=== PATIENT | female | born 1965 | race Caucasian/White ===

== ENCOUNTER 2018-01-23 10:29 | Emergency (ER) | payer OTHER ==
[2018-01-23 10:44] VITALS: BMI 29.2
[2018-01-23] MEDS ORDERED: SODIUM CHLORIDE 1,000 ML IV STA (11:02)
[2018-01-23] MEDS ORDERED: ACETAMINOPHEN 500 MG TABLET (FP) PO ONE (11:02)
[2018-01-23] MEDS ORDERED: METOCLOPRAMIDE HCL INJECTION 10 MG/2 ML VIAL IVPUSH ONE (11:02)
[2018-01-23] MEDS ORDERED: ACETAMINOPHEN 325 MG TABLET (FP) ONE (11:08)
[2018-01-23] MEDS ORDERED: METOCLOPRAMIDE HCL INJECTION 10 MG/2 ML VIAL ONE (11:08)
--- NOTE | 2018-01-23 11:34 | PDOC ---
History of Present Illness - General Chief Complaint: Head/Neck problem Stated Complaint: FALL/ DIZZINESS Time Seen by Provider: 01/23/18 10:46 History Source: Patient Exam Limitations: No Limitations - History of Present Illness Initial Comments: 01/23/18 11:27 HPI: This 52 yr old female with c.o head pain and lightheadness after a fall that occurred just prior to comingin to ER. She drove in herself. she was in her kitchen and stated the floor was wet and she slipped and fell, hitting her back of her head on the floor under the kitchen table. She actually hit her head on the wooden leg of the table. She remembers the whole incident, no bleeding, no confusion, neg LOC, and denies neck pain. she states she is nausea , no vomiting, is lightheadedness with out other symptoms. Chief Compliant: head pain PMH: hypothyroidism FH: Pt has not recently traveled outside the country in the last 30 days. Pt has not been in contact with people who have traveled out of the country, in contact with people who have been ill with fever, n, v, d. 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: tracie Mckeon P : Past History - Travel Traveled outside of the country in the last 30 days: No Close contact w/someone who was outside of country & ill: No - Past Medical History Allergies/Adverse Reactions: Allergies Allergy/AdvReac Type Severity Reaction Status Date / Time No Known Allergies Allergy Verified 01/23/18 10:44 Home Medications: Ambulatory Orders Levothyroxine [Synthroid -] 100 mcg PO DAILY 01/23/18 COPD: No Thyroid Disease: Yes (HYPOTHYROIDISM) - Surgical History Gastric Stapling: No (GASTRIC SLEEVE) - Suicide/Smoking/Psychosocial Hx Smoking Status: No Smoking History: Never smoked Number of Cigarettes Smoked Daily: 0 Information on smoking cessation initiated: No Hx Alcohol Use: No Drug/Substance Use Hx: No Substance Use Type: None Trauma Specific PMHX - Complaint Specific PMHX Back Injury: No Neck Injury: No Review of Systems - Review of Systems Able to Perform ROS?: Yes Is the patient limited Amharic proficient: Yes Constitutional: No: Symptoms Reported, Other HEENTM: Yes: See HPI. No: Blurred Vision Respiratory: No: Symptoms reported Cardiac (ROS): No: Symptoms Reported ABD/GI: No: Symptoms Reported : No: Symptoms Reported Musculoskeletal: Yes: Other (occipital head pain). No: Back Pain, Joint Pain, Muscle Pain, Neck Pain Integumentary: Yes: See HPI, Other (occipital head scalp swelling). No: Bruising, Dryness, Erythema, Lesions Neurological: Yes: See HPI, Headache, Dizziness. No: Numbness, Paresthesia, Weakness, Unsteady Gait Psychiatric: Yes: Other (found to be crying after eval, children fighting prior to [employer] and she was upset) Endocrine: No: Symptoms Reported Hematologic/Lymphatic: No: Symptoms Reported *Physical Exam - Vital Signs Last Vital Signs Temp Pulse Resp BP Pulse Ox 97.9 F 83 18 143/94 99 01/23/18 10:42 01/23/18 10:42 01/23/18 10:42 01/23/18 10:42 01/23/18 10:42 - Physical Exam General Appearance: Yes: Appropriately Dressed HEENT: positive: Normal Voice, Symmetrical Neck: positive: Trachea midline Respiratory/Chest: positive: Lungs Clear Cardiovascular: positive: Regular Rate Gastrointestinal/Abdominal: positive: Normal Bowel Sounds, Flat Musculoskeletal: positive: Normal Inspection Extremity: positive: Normal Capillary Refill, Normal Inspection Integumentary: positive: Normal Color, Dry, Warm Neurologic: positive: Fully Oriented, Alert, Normal Response, Motor Strength 5/ 5. negative: Facial Droop ED Treatment Course - LABORATORY CBC & Chemistry Diagram: 01/23/18 11:15 01/23/18 11:25 - RADIOLOGY Radiology Studies Ordered: Category Date Time Status HEAD CT WITHOUT CONTRAST [CT] Stat CT Scan 01/23/18 11:02 Ordered - Medications Given in the ED: ED Medications Discontinued Medications Generic Name Dose Route Start Last Admin Trade Name Freq PRN Reason Stop Dose Admin Acetaminophen 975 mg 01/23/18 11:02 01/23/18 11:26 Tylenol - PO 01/23/18 11:03 975 mg ONCE ONE Administration Metoclopramide HCl 10 mg 01/23/18 11:02 01/23/18 11:26 Reglan Injection - IVPUSH 01/23/18 11:03 10 mg ONCE ONE Administration Medical Decision Making - Medical Decision Making 01/23/18 11:37 Pt seen and examined. Pt drove to ER and ambulated into ER bed with a steady gait. she is upset due to her teenage children fighting when this occurred and she denies any cause for concern of harm at home even when asked by RN Pt with small eccymotic, swollen area of scalp without open skin to the occipital midline. + pain to touch. Plan: -Head CT - -Tylenol po -reglan IV for nausea -IVF -labs -ua -reassess. 01/23/18 12:[address] normal, no acute pathology Pt refused IVF, received reglan and tylenol and found sleeping upon discharge. Denies headache or lightheadnesses, head pain Pt will be discharged at this time to go home and rest *DC/Admit/Observation/Transfer Diagnosis at time of Disposition: Trauma Head pain Qualifiers: Headache type: post-traumatic Headache chronicity pattern: acute headache Intractability: not intractable Qualified Code(s): G44.319 - Acute post- traumatic headache, not intractable - Discharge Dispostion Disposition: HOME Condition at time of disposition: Stable Admit: No - Referrals - Patient Instructions Printed Discharge Instructions: DI for Post-traumatic Headache Additional Instructions: Discharge instructions 1. Please follow up with your primary physician within the next few days and explain that you have been seen here in the Emergency Room have having a closed head injury from a traumatic fall at home . 2. If you experience any worsening of symptoms, changes of your mental status, increase pain, please return to the ER immediately 3. Rest today, take tylenol for pain, use ice to area. 4. Drink plenty of water - Post Discharge Activity Forms/Work/School Notes: Back to Work
[2018-01-23 11:38] LABS: BASO % 0.9 % (0-2.0); EOS % 2.8 % (0-4.5); HEMATOCRIT 43.4 % (32.4-45.2); HEMOGLOBIN 15.1 GM/dL (10.7-15.3); LYMPH % 31.9 % (8-40); MCH 32.7 pg (25.7-33.7); MCHC 34.9 g/dl (32.0-36.0); MEAN CELL VOLUME 93.8 fl (80-96); MONO % 9.9 % (3.8-10.2); NEUT % 54.5 % (42.8-82.8); PLATELET COUNT 258 K/MM3 (134-434); RBC 4.63 M/mm3 (3.60-5.2); RDW 13.3 % (11.6-15.6); WHITE BLOOD COUNT 8.3 K/mm3 (4.0-10.0)
[2018-01-23 11:40] LABS: URINE APPEARANCE CLEAR; URINE BILIRUBIN NEGATIVE (NEGATIVE); URINE BLOOD NEGATIVE (NEGATIVE); URINE COLOR YELLOW; URINE GLUCOSE (UA) NEGATIVE (NEGATIVE); URINE KETONE NEGATIVE (NEGATIVE); URINE LEUK ESTERASE TRACE (NEGATIVE); URINE NITRITE NEGATIVE (NEGATIVE); URINE PROTEIN NEGATIVE (NEGATIVE); URINE UROBILINOGEN NEGATIVE mg/dL (0.2-1.0)
[2018-01-23 12:07] LABS: EPI CELLS RARE /HPF (FEW); URINE MUCUS FEW
[2018-01-23 12:20] LABS: ALBUMIN 4.1 g/dl (3.4-5.0); ALK PHOS 87 U/L (45-117); ANION GAP 7 (8-16); BILIRUBIN,TOTAL 0.4 mg/dL (0.2-1.0); BLOOD UREA NITROGEN 14 mg/dL (7-18); CALCIUM 8.6 mg/dL (8.5-10.1); CHLORIDE 104 mmol/L (98-107); CO2 29 mmol/L (21-32); CREATININE 0.8 mg/dL (0.55-1.02); GLUCOSE,RANDOM 87 mg/dL (74-106); POTASSIUM 3.9 mmol/L (3.5-5.1); SGOT/AST 19 U/L (15-37); SGPT/ALT 24 U/L (12-78); SODIUM 140 mmol/L (136-145); TOT PROT 8.1 g/dl (6.4-8.2)
[2018-01-23 13:01] VITALS: BP 132/77; PULSE 72; TEMP 98.2
== END 2018-01-23 13:01 | disposition home or self-care (01) ==
LOC: JER 10:29
PROC: 3E033GC Introduction of Other Therapeutic Substance into Peripheral Vein, Percutaneous Approach (ICD-10-PCS; principal; 2018-01-23)
PROC: 3E0337Z Introduction of Electrolytic and Water Balance Substance into Peripheral Vein, Percutaneous Approach (ICD-10-PCS; 2018-01-23)
DX: G44.319 Acute post-traumatic headache, not intractable (principal); W18.39XA Other fall on same level, initial encounter; Y93.89 Activity, other specified; Y92.9 Unspecified place or not applicable; E03.9 Hypothyroidism, unspecified; Z98.84 Bariatric surgery status
CPT/HCPCS: 36415; 70450-TC; 80053; 81003; 81015; 85025; 99283-25

== ENCOUNTER 2018-02-18 08:08 | Emergency (ER) | payer OTHER ==
[2018-02-18 08:28] VITALS: TEMP 97.4; BMI 29.2
--- NOTE | 2018-02-18 08:31 | PDOC ---
History of Present Illness - General History Source: Patient Exam Limitations: No Limitations - History of Present Illness Initial Comments: 02/18/18 09:13 The patient is a 52 year old female with a significant PMH of hypothyroidism on synthroid and s/p gastric sleeve placement two years ago who presents to the emergency department with multiple episodes of vomit and abdominal pain that began yesterday. The patient states she was in [place] for 1 week, came back yesterday and has been experiencing multiple episodes of non-bloody, non- bilious clear vomit since. The patient endorses emesis after every PO intake. The patient describes the abdominal pain as localized in the LLQ, non radiating and denies any alleviating or exacerbating factors. Denies fever, chills, diarrhea and constipation. Denies dysuria, frequency, urgency and hematuria. The patient is not currently following with GI. Allergies: NKA Past surgical history: gastric sleeve placement Social history: No reported alcohol, drug or cigarette use. PCP: Dr. Gary Lan <Nicol Arenas - Last Filed: 02/18/18 09:13> <Court Guillen - Last Filed: 02/18/18 14:19> - General Chief Complaint: Vomiting/Diarrhea Stated Complaint: ABD PAIN, VOMITING Time Seen by Provider: 02/18/18 08:31 Past History <Nicol Arenas - Last Filed: 02/18/18 09:13> - Past Medical History COPD: No Thyroid Disease: Yes (HYPOTHYROIDISM) - Surgical History Gastric Stapling: No (GASTRIC SLEEVE) - Immunization History Immunization Up to Date: Yes - Suicide/Smoking/Psychosocial Hx Smoking Status: No Smoking History: Never smoked Number of Cigarettes Smoked Daily: 0 Hx Alcohol Use: No Drug/Substance Use Hx: No Substance Use Type: None <Court Guillen - Last Filed: 02/18/18 14:19> - Past Medical History Allergies/Adverse Reactions: Allergies Allergy/AdvReac Type Severity Reaction Status Date / Time No Known Allergies Allergy Verified 02/18/18 08:20 Home Medications: Ambulatory Orders Levothyroxine [Synthroid -] 100 mcg PO DAILY 01/23/18 Review of Systems - Review of Systems Able to Perform ROS?: Yes Comments:: 02/18/18 09:15 GENERAL/CONSTITUTIONAL: No fever or chills. No weakness. HEAD, EYES, EARS, NOSE AND THROAT: No change in vision. No ear pain or discharge. No sore throat. CARDIOVASCULAR: No chest pain or shortness of breath. RESPIRATORY: No cough, wheezing, or hemoptysis. GASTROINTESTINAL: (+) Vomiting. (+) LLQ pain. No nausea, diarrhea or constipation. GENITOURINARY: No dysuria, frequency, or change in urination. MUSCULOSKELETAL: No joint or muscle swelling or pain. No neck or back pain. SKIN: No rash NEUROLOGIC: No headache, vertigo, loss of consciousness, or change in strength/ sensation. ENDOCRINE: No increased thirst. No abnormal weight change. HEMATOLOGIC/LYMPHATIC: No anemia, easy bleeding, or history of blood clots. ALLERGIC/IMMUNOLOGIC: No hives or skin allergy. <Nicol Arenas - Last Filed: 02/18/18 09:13> *Physical Exam - Vital Signs Last Vital Signs Temp Pulse Resp BP Pulse Ox 97.4 F L 77 16 115/76 99 02/18/18 08:20 02/18/18 08:20 02/18/18 08:20 02/18/18 08:20 02/18/18 08:20 - Physical Exam Comments: 02/18/18 09:15 GENERAL: Awake, alert, and fully oriented, in no acute distress HEAD: No signs of trauma EYES: PERRLA, EOMI, sclera anicteric, conjunctiva clear ENT: Auricles normal inspection, hearing grossly normal, nares patent, oropharynx clear without exudates. Moist mucosa NECK: Normal ROM, supple, no lymphadenopathy, JVD, or masses LUNGS: Breath sounds equal, clear to auscultation bilaterally. No wheezes, and no crackles HEART: Regular rate and rhythm, normal S1 and S2, no murmurs, rubs or gallops ABDOMEN: (+) LLQ tenderness. Soft, normoactive bowel sounds. No guarding, no rebound. No masses EXTREMITIES: Normal range of motion, no edema. No clubbing or cyanosis. No cords , erythema, or tenderness NEUROLOGICAL: Cranial nerves II through XII grossly intact. Normal speech, normal gait SKIN: Warm, Dry, normal turgor, no rashes or lesions noted. <Nicol Arenas - Last Filed: 02/18/18 09:13> - Vital Signs Last Vital Signs Temp Pulse Resp BP Pulse Ox 97.4 F L 77 16 115/76 99 02/18/18 08:20 02/18/18 08:20 02/18/18 08:20 02/18/18 08:20 02/18/18 08:20 <Court Guillen - Last Filed: 02/18/18 14:19> ED Treatment Course - LABORATORY CBC & Chemistry Diagram: 02/18/18 09:10 02/18/18 09:10 <Court Guillen - Last Filed: 02/18/18 14:19> Medical Decision Making - Medical Decision Making 02/18/18 10:49 Pt presents to the ED complaining of nausea, vomiting and diarrhea for two days after eating tacos in [place]. History of gastric sleeve surgery. + RLQ tenderness without guarding or rebound on my exam. Differential includes gastroenteritis, less likely appendicitis, unlikely gastric sleeve leak. Will check labs and CT abdomen, treat pain and nausea and reassess. 02/18/18 14:17 Ct is negative for acute pathology. Patient is now tolerating PO. Will discharge home. <Court Guillen - Last Filed: 02/18/18 14:19> *DC/Admit/Observation/Transfer - Attestations Scribe Attestion: 02/18/18 09:18 Documentation prepared by Nicol Arenas, acting as associate medical director for Court Guillen MD. <Nicol Arenas - Last Filed: 02/18/18 09:13> - Discharge Dispostion Admit: No <Court Guillen - Last Filed: 02/18/18 14:19> Diagnosis at time of Disposition: Nausea and vomiting Qualifiers: Vomiting type: unspecified Vomiting Intractability: non-intractable Qualified Code(s): R11.2 - Nausea with vomiting, unspecified - Discharge Dispostion Disposition: HOME Condition at time of disposition: Good - Referrals Referrals: Gary Lan [Primary Care Provider] - - Patient Instructions Printed Discharge Instructions: DI for Vomiting -- Adult Additional Instructions: return to the ED for severe nausea and vomiting, unable to keep liquids down, fever, severe abdominal pain, other new or changing symptoms. Return for bloody diarrhea or vomiting. Call your doctor for follow up within one week. - Post Discharge Activity
[2018-02-18] MEDS ORDERED: ONDANSETRON 4 MG/2 ML VIAL IVPUSH ONE (08:55)
[2018-02-18] MEDS ORDERED: morphine SULFATE 4 MG/ML VIAL IVPUSH ONE (08:55)
[2018-02-18] MEDS ORDERED: ONDANSETRON 4 MG/2 ML VIAL ONE (09:06)
[2018-02-18] MEDS ORDERED: morphine SULFATE 4 MG/ML VIAL ONE (09:06)
[2018-02-18 09:31] LABS: BASO % 0.8 % (0-2.0); EOS % 4.7 % (0-4.5); HEMATOCRIT 42.2 % (32.4-45.2); HEMOGLOBIN 14.2 GM/dL (10.7-15.3); LYMPH % 45.8 % (8-40); MCH 31.7 pg (25.7-33.7); MCHC 33.7 g/dl (32.0-36.0); MEAN CELL VOLUME 94.2 fl (80-96); MONO % 10.4 % (3.8-10.2); NEUT % 38.3 % (42.8-82.8); PLATELET COUNT 209 K/MM3 (134-434); RBC 4.48 M/mm3 (3.60-5.2); RDW 13.2 % (11.6-15.6); WHITE BLOOD COUNT 4.8 K/mm3 (4.0-10.0)
[2018-02-18 10:30] LABS: ALBUMIN 3.6 g/dl (3.4-5.0); ANION GAP 4 (8-16); BLOOD UREA NITROGEN 12 mg/dL (7-18); CALCIUM 8.4 mg/dL (8.5-10.1); CHLORIDE 105 mmol/L (98-107); CO2 31 mmol/L (21-32); GLUCOSE,RANDOM 80 mg/dL (74-106); POTASSIUM 3.8 mmol/L (3.5-5.1); SODIUM 140 mmol/L (136-145)
[2018-02-18 10:34] LABS: BILIRUBIN,TOTAL 0.4 mg/dL (0.2-1.0); CREATININE 0.8 mg/dL (0.55-1.02); SGOT/AST 29 U/L (15-37)
[2018-02-18 10:42] LABS: ALK PHOS 74 U/L (45-117)
[2018-02-18 10:57] LABS: SGPT/ALT 27 U/L (12-78)
[2018-02-18 15:06] VITALS: BP 116/82; PULSE 80
== END 2018-02-18 15:06 | disposition home or self-care (01) ==
LOC: JER 08:08
PROC: 3E033NZ Introduction of Analgesics, Hypnotics, Sedatives into Peripheral Vein, Percutaneous Approach (ICD-10-PCS; principal; 2018-02-18)
PROC: 3E033GC Introduction of Other Therapeutic Substance into Peripheral Vein, Percutaneous Approach (ICD-10-PCS; 2018-02-18)
DX: R11.2 Nausea with vomiting, unspecified (principal); E03.9 Hypothyroidism, unspecified; Z98.84 Bariatric surgery status
CPT/HCPCS: 36415; 74177-TC; 80053; 85025; 96374; 96375; 99282-25

== ENCOUNTER 2018-03-05 12:45 | Emergency (ER) | payer OTHER ==
[2018-03-05 12:54] VITALS: BP 118/77; PULSE 87; TEMP 97.7; BMI 28.3
--- NOTE | 2018-03-05 13:56 | PDOC ---
History of Present Illness - General Chief Complaint: Injury Stated Complaint: FOOT INJURY Time Seen by Provider: 03/05/18 13:18 - History of Present Illness Initial Comments: 03/05/18 14:07 CHIEF COMPLAINT: toe pain HISTORY OF PRESENT ILLNESS: 52 yo F with hx of hypothyroidism presents to ED with left swollen great toe x 2 weeks. PAtient reports getting a pedicure prior to the onset of her symptoms. She reports throbbing pain to great toe, especially with pressure. Patient denies any fever, chills, nausea, vomiting, or diarrhea. PAST MEDICAL HISTORY: Denies past medical history FAMILY HISTORY: Denies SOCIAL HISTORY: Denies tobacco, alcohol, illicit drug use. SURGICAL HISTORY: Denies ALLERGIES: No known drug allergies REVIEW OF SYSTEMS General/Constitutional: Denies fever or chills. Denies weakness, weight change. HEENT: Denies change in vision. Denies ear pain or discharge. Denies sore throat. Cardiovascular: Denies chest pain or shortness of breath. Respiratory: Denies cough, wheezing, or hemoptysis. Gastrointestinal: Denies nausea, vomiting, diarrhea or constipation. Denies rectal bleeding. Genitourinary: Denies dysuria, frequency, or change in urination. Musculoskeletal: Toe swelling and pain. Denies neck or back pain. PHYSICAL EXAM General Appearance: Well-appearing, appropriately dressed. No apparent distress , no intoxication. HEENT: EOMI, PERRLA, normal ENT inspection, normal voice, TMs normal, pharynx normal. No conjunctival pallor. No photophobia, scleral icterus. Neck: Supple. Trachea midline. No tenderness, rigidity, carotid bruit, stridor , lymphadenopathy, or thyromegaly. Respiratory/Chest: Lungs CTAB. No shortness of breath, chest tenderness, respiratory distress, accessory muscle use. No crackles, rales, rhonchi, stridor , wheezing, dullness Cardiovascular: RRR. S1, S2. No JVD, murmur, bradycardia, tachycardia. Vascular Pulses: Dorsalis-Pedis (R): 2+, Dorsalis-Pedis (L): 2+ Gastrointestinal/Abdominal: Normal bowel sounds. Abdomen soft, non-distended. No tenderness or rebound tenderness. No organomegaly, pulsatile mass, guarding , hernia, hepatomegaly, splenomegaly. Lymphatic: No adenopathy, tenderness. Musculoskeletal/Extremities: Erythematous, edematous, tender left hallux with paronychia. Normal inspection. FROM of all extremities, normal capillary refill. Pelvis Stable. No CVA tenderness. Integumentary: Appropriate color, dry, warm. 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 Fully oriented, alert. Appropriate mood/affect. Motor strength 5/5. No appreciable EOM palsy, facial droop or sensory deficit. 03/05/18 14:16 Past History - Past Medical History Allergies/Adverse Reactions: Allergies Allergy/AdvReac Type Severity Reaction Status Date / Time No Known Allergies Allergy Verified 03/05/18 12:54 Home Medications: Ambulatory Orders Levothyroxine [Synthroid -] 100 mcg PO DAILY 01/23/18 Mupirocin 15 gm TP ASDIR #1 tube 03/05/18 Sulfamethoxazole/Trimethoprim [Bactrim Ds Tablet] 1 each PO BID #14 tablet 03/05 COPD: No Thyroid Disease: Yes (HYPOTHYROIDISM) - Surgical History Gastric Stapling: No (GASTRIC SLEEVE) - Immunization History Immunization Up to Date: Yes - Suicide/Smoking/Psychosocial Hx Smoking Status: No Smoking History: Never smoked Number of Cigarettes Smoked Daily: 0 Hx Alcohol Use: No Drug/Substance Use Hx: No Substance Use Type: None *Physical Exam - Vital Signs Last Vital Signs Temp Pulse Resp BP Pulse Ox 97.7 F 87 18 118/77 100 03/05/18 12:51 03/05/18 12:51 03/05/18 12:51 03/05/18 12:51 03/05/18 12:51 Medical Decision Making - Medical Decision Making 03/05/18 14:22 52 yo F with hx of hypothyroidism presents to ED with left swollen great toe x 2 weeks. -paronychia I&D performed, see procedure note -wound culture sent bactroban and bactrim rx sent to pharm Advised patient to take medications as prescribed and f/u with podiatry if symptoms persist. Advised patient of signs and symptoms for return to ER; patient verbalized understanding and agree sot plan. *DC/Admit/Observation/Transfer Diagnosis at time of Disposition: Paronychia of toe of left foot - Discharge Dispostion Disposition: HOME Condition at time of disposition: Stable Admit: No - Prescriptions Prescriptions: Mupirocin 15 gm TP ASDIR #1 tube Sulfamethoxazole/Trimethoprim [Bactrim Ds Tablet] 1 each PO BID #14 tablet - Referrals Referrals: Kun Peterson MD [Staff Physician] - - Patient Instructions Printed Discharge Instructions: DI for Paronychia Additional Instructions: Please take medications as prescribed and complete the ENTIRE course of antibiotics, even after your symptoms improve. Please soak your foot in warm water at least 10-15 minutes 4 times a day and apply ointment as directed. If symptoms persist past one week, please follow up with podiatry (referral provided). If you develop any fever, chills, vomiting, diarrhea, increased swelling, redness, warmth, or pain to your toe or foot, please return to the ER immediately. - Post Discharge Activity
--- NOTE | 2018-03-11 07:49 | PDOC ---
Patient Follow-up (Call Back) - Post ED Follow - Up Condition at time of discharge: Stable Disposition at time of original discharge: HOME Reason for Call Back: Abnwl. Microbiology Signs/Symptoms Improved: Yes - Disposition Additional Instructions/Notes: Spoke with patient. wound culture positive for gram + cocci in chains. was discharged with mupirocin and bactrim. Patient's symptoms have improved. Will not call out anything else.
== END 2018-03-05 14:41 | disposition home or self-care (01) ==
LOC: JERFT 12:45
PROC: 0J9R0ZZ Drainage of Left Foot Subcutaneous Tissue and Fascia, Open Approach (ICD-10-PCS; principal; 2018-03-05)
DX: L03.032 Cellulitis of left toe (principal)
CPT/HCPCS: 10060; 87070; 87186; 87205; 99281-25

== ENCOUNTER 2018-10-11 22:15 | Emergency (ER) | payer OTHER ==
[2018-10-11 22:21] VITALS: BMI 32.5
--- NOTE | 2018-10-12 00:04 | PDOC ---
History of Present Illness - General History Source: Patient Exam Limitations: No Limitations - History of Present Illness Initial Comments: 10/12/18 01:24 The patient is a year old female, with a significant past medical history of hypothyroidism on synthroid and s/p gastric sleeve placement, who presents to the emergency department 2 days s/p mechanical fall. As per patient, she was hosting a green party yesterday when she slipped and fell backwards. She notes since the fall shes experienced headaches and pain shooting down her leg. She took Ibuprofen, with minimal relief. She denies any photophobia, phonophobia, dizziness, or lightheadedness. She denies recent nausea, vomit, diarrhea or constipation. She denies recent dysuria, frequency, urgency or hematuria. She denies recent chest pain or shortness of breath. Allergies: NKDA Past surgical history: gastric sleeve placement Social history: No reported alcohol, drug or cigarette use. Primary Care Physician: Dr. Gary Lan <Aníbal Stubbs - Last Filed: 10/12/18 01:24> <Belgica Jacobson - Last Filed: 10/12/18 19:50> - General Chief Complaint: Back Pain Stated Complaint: FALL/INJURY Time Seen by Provider: 10/12/18 00:04 Past History <Aníbal Stubbs - Last Filed: 10/12/18 01:24> - Past Medical History CVA: No COPD: No CHF: No DVT: No Dementia: No Diabetes: No Thyroid Disease: Yes (HYPOTHYROIDISM) - Surgical History Gastric Stapling: No (GASTRIC SLEEVE) - Immunization History Immunization Up to Date: Yes - Suicide/Smoking/Psychosocial Hx Smoking Status: No Smoking History: Never smoked Number of Cigarettes Smoked Daily: 0 Information on smoking cessation initiated: No Hx Alcohol Use: No Drug/Substance Use Hx: No Substance Use Type: None <Belgica Jacobson - Last Filed: 10/12/18 19:50> - Past Medical History Allergies/Adverse Reactions: Allergies Allergy/AdvReac Type Severity Reaction Status Date / Time No Known Allergies Allergy Verified 03/05/18 12:54 Home Medications: Ambulatory Orders Levothyroxine [Synthroid -] 100 mcg PO DAILY 01/23/18 Mupirocin 15 gm TP ASDIR #1 tube 03/05/18 Sulfamethoxazole/Trimethoprim [Bactrim Ds Tablet] 1 each PO BID #14 tablet 03/05 Lidocaine 5% Patch [Lidoderm Patch -] 1 patch TP DAILY #30 patch 10/12/18 Review of Systems - Review of Systems Able to Perform ROS?: Yes Comments:: 10/12/18 01:24 GENERAL/CONSTITUTIONAL: No fever or chills. No weakness. HEAD, EYES, EARS, NOSE AND THROAT: No change in vision. No ear pain or discharge. No sore throat. CARDIOVASCULAR: No chest pain or shortness of breath. RESPIRATORY: No cough, wheezing, or hemoptysis. GASTROINTESTINAL: No nausea, vomiting, diarrhea or constipation. GENITOURINARY: No dysuria, frequency, or change in urination. +MUSCULOSKELETAL: Leg pain. No neck or back pain. SKIN: No rash +NEUROLOGIC: Headache. No vertigo, loss of consciousness, or change in strength/ sensation. ENDOCRINE: No increased thirst. No abnormal weight change. HEMATOLOGIC/LYMPHATIC: No anemia, easy bleeding, or history of blood clots. ALLERGIC/IMMUNOLOGIC: No hives or skin allergy. All Other Systems: Reviewed and Negative <Aníbal Stubbs - Last Filed: 10/12/18 01:24> *Physical Exam - Vital Signs Last Vital Signs Temp Pulse Resp BP Pulse Ox 97.9 F 78 20 171/91 H 99 10/11/18 22:18 10/11/18 22:18 10/11/18 22:18 10/11/18 22:18 10/11/18 22:18 <Aníbal Stubbs - Last Filed: 10/12/18 01:24> - Vital Signs Last Vital Signs Temp Pulse Resp BP Pulse Ox 97.9 F 78 20 171/91 H 99 10/11/18 22:18 10/11/18 22:18 10/11/18 22:18 10/11/18 22:18 10/11/18 22:18 <Belgica Jacobson - Last Filed: 10/12/18 19:50> ED Treatment Course - Medications Given in the ED: ED Medications Discontinued Medications Generic Name Dose Route Start Last Admin Trade Name Freq PRN Reason Stop Dose Admin Ketorolac Tromethamine 60 mg 10/12/18 00:05 10/12/18 00:37 Toradol Injection - IM 10/12/18 00:06 60 mg ONCE ONE Administration Methocarbamol 1,000 mg 10/12/18 00:05 10/12/18 00:37 Robaxin - PO 10/12/18 00:06 1,000 mg ONCE ONE Administration <Aníbal Stubbs - Last Filed: 10/12/18 01:24> Medical Decision Making - Medical Decision Making 10/12/18 02:02 Patient Name: RAGHU NAGY THIS IS A PRELIMINARY REPORT FROM [facility] DATE OF SERVICE: 2018-10-12 01:01:47 IMAGES: 138 EXAM: CT HEAD CT WITHOUT CONTRAST HISTORY: Trauma COMPARISON: None. FINDINGS: Brain parenchyma is normal in attenuation with no mass or hematoma. There is no midline shift. Dodge and white matter differentiation is normal. Ventricles are normal. Sulci and extra-axial CSF spaces are normal. Intracranial vascular structures are normal in attenuation. There is no calvarial fracture. Paranasal sinuses are normally aerated. IMPRESSION: Normal head 10/12/18 03:41 Patient Name: RAGHU NAGY THIS IS A PRELIMINARY REPORT FROM [facility] DATE OF SERVICE: 2018-10-12 00:46:04 IMAGES: 2 EXAM: XR SPINE-LUMBAR ONLY / SPINE-THORACIC HISTORY: Trauma with back pain COMPARISON: None. FINDINGS: Frontal and lateral views of the thoracic and lumbar spine demonstrate normal vertebral body height with no anterior wedging. There are small anterior osteophytes suggesting chronic degenerative change. IMPRESSION: No thoracic or lumbar fracture Pt is feeling better with meds in the ER. She will be sent home with the same. <Belgica Jacobson - Last Filed: 10/12/18 19:50> *DC/Admit/Observation/Transfer - Attestations Scribe Attestion: 10/12/18 01:25 Documentation prepared by Aníbal Stubbs, acting as administrative medical director for Belgica Jacobson MD. <Aníbal Stubbs - Last Filed: 10/12/18 01:24> - Discharge Dispostion Decision to Admit order: No <Belgica Jacobson - Last Filed: 10/12/18 19:50> Diagnosis at time of Disposition: Back contusion - Discharge Dispostion Disposition: HOME Condition at time of disposition: Stable - Prescriptions Prescriptions: Lidocaine 5% Patch [Lidoderm Patch -] 1 patch TP DAILY #30 patch - Referrals Referrals: Gary Lan [Primary Care Provider] - - Patient Instructions Printed Discharge Instructions: DI for Back Spasm, Thoracic Back Pain - Post Discharge Activity
[2018-10-12] MEDS ORDERED: METHOCARBAMOL 500 MG TABLET PO ONE (00:05)
[2018-10-12] MEDS ORDERED: KETOROLAC TROMETHAMINE 60 MG/2 ML VIAL IM ONE (00:05)
[2018-10-12] MEDS ORDERED: KETOROLAC TROMETHAMINE 60 MG/2 ML VIAL ONE (00:31)
[2018-10-12] MEDS ORDERED: METHOCARBAMOL 500 MG TABLET ONE (00:31)
[2018-10-12 01:33] VITALS: BP 134/89; PULSE 68; TEMP 98.2
[2018-10-12] MEDS ORDERED: LIDOCAINE 5% TOPICAL PATCH TP ONE (01:53)
[2018-10-12] MEDS ORDERED: LIDOCAINE 5% TOPICAL PATCH ONE (02:06)
[2018-10-12] MEDS ORDERED: LIDOCAINE PATCH REMOVAL MC SCH (22:00)
== END 2018-10-12 03:43 | disposition home or self-care (01) ==
LOC: JER 22:15
PROC: 3E0233Z Introduction of Anti-inflammatory into Muscle, Percutaneous Approach (ICD-10-PCS; principal; 2018-10-11)
DX: S20.229A Contusion of unspecified back wall of thorax, initial encounter (principal); W01.0XXA Fall on same level from slipping, tripping and stumbling without subsequent striking against object, initial encounter; Y93.89 Activity, other specified; Y92.038 Other place in apartment as the place of occurrence of the external cause; Y99.8 Other external cause status; E03.9 Hypothyroidism, unspecified
CPT/HCPCS: 70450-TC; 72070-TC-FY; 72100-TC-FY; 96372; 99282-25

== ENCOUNTER 2018-10-30 10:08 | Emergency (ER) | payer OTHER ==
[2018-10-30 10:19] VITALS: BP 124/86; PULSE 78; TEMP 98.6; BMI 30.9
[2018-10-30] MEDS ORDERED: ALBUTEROL SO4 2.5/IPRATROPIUM 0.5 INH SOL 3 ML VIAL.NEB. NEB ONE ×2 (11:11→11:18)
--- NOTE | 2018-10-30 11:14 | PDOC ---
History of Present Illness - General Chief Complaint: Cold Symptoms Stated Complaint: COUGH FOR 2 WEEKS Time Seen by Provider: 10/30/18 11:02 History Source: Patient Exam Limitations: No Limitations - History of Present Illness Initial Comments: 10/30/18 18:54 Patient is here with worsening coughing over the past 2 weeks. States his use [id number] medications and finishing azithromycin from physician but not improving with the cough. States feels tight and has been wheezing. Timing/Duration: reports: getting worse Severity: reports: mild Associated Symptoms: reports: cough (nonproductive), fever/chills, nasal congestion, nasal drainage. denies: sore throat, wheezing Past History - Travel Traveled outside of the country in the last 30 days: No Close contact w/someone who was outside of country & ill: No - Past Medical History Allergies/Adverse Reactions: Allergies Allergy/AdvReac Type Severity Reaction Status Date / Time No Known Allergies Allergy Verified 10/30/18 10:15 Home Medications: Ambulatory Orders Levothyroxine [Synthroid -] 100 mcg PO DAILY 01/23/18 Albuterol Sulfate Inhaler - [Ventolin HFA Inhaler -] 1 - 2 inh PO Q4H #1 inhaler 10/30/18 predniSONE [Deltasone -] 20 mg PO BID #8 tablet 10/30/18 CVA: No COPD: No CHF: No DVT: No Dementia: No Diabetes: No Thyroid Disease: Yes (HYPOTHYROIDISM) - Surgical History Gastric Stapling: No (GASTRIC SLEEVE) - Immunization History Immunization Up to Date: Yes - Suicide/Smoking/Psychosocial Hx Smoking Status: No Smoking History: Never smoked Have you smoked in the past 12 months: No Number of Cigarettes Smoked Daily: 0 Information on smoking cessation initiated: No Hx Alcohol Use: No Drug/Substance Use Hx: No Substance Use Type: None Review of Systems - Review of Systems Able to Perform ROS?: Yes Is the patient limited Slovenian proficient: Yes Constitutional: Yes: Symptoms Reported, See HPI, Malaise HEENTM: Yes: Symptoms Reported, See HPI, Nose Congestion Respiratory: Yes: Symptoms reported, See HPI, Cough. No: Wheezing Cardiac (ROS): No: Symptoms Reported ABD/GI: No: Symptoms Reported Integumentary: Yes: See HPI. No: Symptoms Reported Neurological: No: Symptoms reported All Other Systems: Reviewed and Negative *Physical Exam - Vital Signs Last Vital Signs Temp Pulse Resp BP Pulse Ox 98.6 F 78 16 124/86 100 10/30/18 10:15 10/30/18 10:15 10/30/18 10:15 10/30/18 10:15 10/30/18 10:15 - Physical Exam General Appearance: Yes: Nourished, Appropriately Dressed, Mild Distress HEENT: positive: RAAD, TMs Normal (congested but landmarks easily visualized), Pharynx Normal, Nasal Congestion, Rhinorrhea (clear drainage). negative: TM Bulging Neck: positive: Supple. negative: Tender, Lymphadenopathy (R), Lymphadenopathy (L) Respiratory/Chest: positive: Lungs Clear (however mildly diminished and somewhat tight). 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 We'll continue albuterol nebulizers at home with another 4 days of prednisone. We'll follow up with PMD *DC/Admit/Observation/Transfer Diagnosis at time of Disposition: URI, acute - Discharge Dispostion Disposition: HOME Condition at time of disposition: Stable Decision to Admit order: No - Prescriptions Prescriptions: Albuterol Sulfate Inhaler - [Ventolin HFA Inhaler -] 1 - 2 inh PO Q4H #1 inhaler predniSONE [Deltasone -] 20 mg PO BID #8 tablet - Referrals Referrals: Gary Lan [Primary Care Provider] - - Patient Instructions Printed Discharge Instructions: DI for Viral Upper Respiratory Infection -- Adult Additional Instructions: Rest, drink lots of fluids: Teas, water, soups, Pedialyte Saltwater gargles Steamy showers/seem to face break up mucus Avoid contact with others until fevers and cough resolved Lots of handwashing and good hygiene Continue [id number] medications for symptomatic relief Tylenol or Motrin for fever and pain Continue albuterol nebulizers every 4-6 hours for the next 2 days then as needed for continued cough Prednisone as directed until completed Followup with private physician in one to 2 days Return to emergency department / pediatric hospital for worsened symptoms, fevers, dehydration - Post Discharge Activity Forms/Work/School Notes: Back to Work
[2018-10-30] MEDS ORDERED: predniSONE 20 MG TABLET (UD) PO ONE (11:30)
[2018-10-30] MEDS ORDERED: predniSONE 20 MG TABLET (UD) ONE (11:31)
== END 2018-10-30 11:35 | disposition home or self-care (01) ==
LOC: JERFT 10:08
PROC: 3E0F7GC Introduction of Other Therapeutic Substance into Respiratory Tract, Via Natural or Artificial Opening (ICD-10-PCS; principal; 2018-10-30)
DX: J06.9 Acute upper respiratory infection, unspecified (principal); E03.9 Hypothyroidism, unspecified; R09.81 Nasal congestion; R05 Cough
CPT/HCPCS: 94640; 99281-25

== ENCOUNTER 2019-02-01 03:33 | Emergency (ER) | payer OTHER ==
[2019-02-01 04:18] VITALS: BP 124/83; PULSE 81; TEMP 98.4; BMI 40.8
--- NOTE | 2019-02-01 04:28 | PDOC ---
Attending Attestation - Resident Resident Name: Aviva Mcnair - ED Attending Attestation I have performed the following: I have examined & evaluated the patient, The case was reviewed & discussed with the resident, I agree w/resident's findings & plan
[2019-02-01] MEDS ORDERED: SODIUM CHLORIDE 1,000 ML IV STA (04:35)
[2019-02-01] MEDS ORDERED: FAMOTIDINE 20 MG/50 ML IVPB 20 MG/50 ML MG IVPB ONE ×2 (04:35→04:40)
[2019-02-01] MEDS ORDERED: ONDANSETRON 4 MG/2 ML VIAL IVPB ONE (04:35)
[2019-02-01] MEDS ORDERED: ONDANSETRON 4 MG/2 ML VIAL ONE (04:40)
--- NOTE | 2019-02-01 04:50 | PDOC ---
History of Present Illness - General Chief Complaint: Nausea/Vomiting Stated Complaint: VOMITING/DIARRHEA Time Seen by Provider: 02/01/19 04:20 History Source: Patient Exam Limitations: No Limitations - History of Present Illness Initial Comments: 02/01/19 04:46 Pt is a 53yo F with PMH of Hypothyroidism, Gastric Bypass 2014 presenting to ED with complaints of nausea, vomiting and diarrhea that started today. Pt states that around 12 is when everything started. She endorses 8 bouts of diarrhea ( not bloody, not tarry) and more than 20 episodes of nbnb emesis. She states that she has a burning sensation in the epigastric area of her abdomen. She denies recent travel, sick contacts, eating contaminated foods, fevers, chills, urinary symptoms, back pain, flank pain, hematuria, syncope, chest pain, cough, sob. No recent antibiotic use. She had 2 shots of whisky today. She is menopausal PMD: Lan PMH: see hpi PSH: see hpi Meds: Synthroid Allergies: nkda Social: occasional alcohol use. Past History - Past Medical History Allergies/Adverse Reactions: Allergies Allergy/AdvReac Type Severity Reaction Status Date / Time No Known Allergies Allergy Verified 02/01/19 04:19 Home Medications: Ambulatory Orders Levothyroxine [Synthroid -] 100 mcg PO DAILY 01/23/18 Albuterol Sulfate Inhaler - [Ventolin HFA Inhaler -] 1 - 2 inh PO Q4H #1 inhaler 10/30/18 predniSONE [Deltasone -] 20 mg PO BID #8 tablet 10/30/18 Ondansetron [Zofran -] 4 mg PO TID #15 tablet 02/01/19 CVA: No COPD: No CHF: No DVT: No Dementia: No Diabetes: No Thyroid Disease: Yes (HYPOTHYROIDISM) - Surgical History Gastric Stapling: No (GASTRIC SLEEVE) - Immunization History Immunization Up to Date: Yes - Suicide/Smoking/Psychosocial Hx Smoking Status: No Smoking History: Never smoked Have you smoked in the past 12 months: No Number of Cigarettes Smoked Daily: 0 Information on smoking cessation initiated: No Hx Alcohol Use: Yes (Socially) Drug/Substance Use Hx: No Substance Use Type: None Review of Systems - Review of Systems Constitutional: No: Chills, Fever HEENTM: No: Symptoms Reported Respiratory: No: Symptoms reported ABD/GI: Yes: See HPI, Diarrhea, Nausea, Vomiting, Abdominal cramping : No: Symptoms Reported Musculoskeletal: No: Symptoms Reported Integumentary: No: Symptoms Reported Neurological: No: Symptoms reported *Physical Exam - Vital Signs Last Vital Signs Temp Pulse Resp BP Pulse Ox 98.4 F 81 16 124/83 100 02/01/19 03:33 02/01/19 03:33 02/01/19 03:33 02/01/19 03:33 02/01/19 03:33 - Physical Exam General Appearance: Yes: Appropriately Dressed, Mild Distress, Obese HEENT: positive: EOMI, RAAD Neck: positive: Trachea midline, Supple Respiratory/Chest: positive: Lungs Clear, Normal Breath Sounds Cardiovascular: positive: Regular Rhythm, Regular Rate. negative: Edema, JVD, Murmur Vascular Pulses: Carotid (R): 2+, Carotid (L): 2+, Dorsalis-Pedis (R): 2+, Doralis-Pedis (L): 2+ Gastrointestinal/Abdominal: positive: Normal Bowel Sounds, Tender (epigastric), Soft. negative: Distended, Guarding, Rebound, Hernia, Hepatomegaly Musculoskeletal: negative: CVA Tenderness Extremity: positive: Normal Capillary Refill, Pelvis Stable. 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, Fully Oriented, Alert, Normal Mood/ Affect, Normal Response, Motor Strength 5/5 Moderate Sedation - Procedure Monitoring Vital Signs: Procedure Monitoring Vital Signs Temperature 98.4 F 02/01/19 03:33 Pulse Rate 81 02/01/19 03:33 Respiratory Rate 16 02/01/19 03:33 Blood Pressure 124/83 02/01/19 03:33 O2 Sat by Pulse Oximetry (%) 100 02/01/19 03:33 ED Treatment Course - LABORATORY CBC & Chemistry Diagram: 02/01/19 04:33 02/01/19 04:35 - Medications Given in the ED: ED Medications Discontinued Medications Generic Name Dose Route Start Last Admin Trade Name Freq PRN Reason Stop Dose Admin Ondansetron HCl 4 mg 02/01/19 04:35 02/01/19 04:40 Zofran Injection IVPB 02/01/19 04:36 4 mg ONCE ONE Administration Medical Decision Making - Medical Decision Making 02/01/19 04:50 Pt is a 53yo F with PMH of Hypothyroidism, Gastric Bypass 2014 presenting to ED with complaints of nausea, vomiting and diarrhea that started today. Pt states that around 12 is when everything started. She endorses 8 bouts of diarrhea ( not bloody, not tarry) and more than 20 episodes of nbnb emesis. She states that she has a burning sensation in the epigastric area of her abdomen. She denies recent travel, sick contacts, eating contaminated foods, fevers, chills, urinary symptoms, back pain, flank pain, hematuria, syncope, chest pain, cough, sob. No recent antibiotic use. She had 2 shots of whisky today. Vitals: wnl PE: epigastric tenderness, moist membranes ddx includes but not limited to ge, pancreatitis, cholecystitis, cholelithiasis , nephrolithiasis, pyelonephritis, pud -cbc, cmp, lipase -iv fluids, pepcid, zofran no need for imaging at this time, will perform abdominal exam repeat. labs show wbc 13.8. all other labs wnl. do not think it is cholecystitis or pancreatitis pt feeling better, no tenderness. will po challenge and dc home 02/03/19 13:17 *DC/Admit/Observation/Transfer Diagnosis at time of Disposition: Nausea and vomiting Qualifiers: Vomiting type: unspecified Vomiting Intractability: non-intractable Qualified Code(s): R11.2 - Nausea with vomiting, unspecified Diarrhea Qualifiers: Diarrhea type: unspecified type Qualified Code(s): R19.7 - Diarrhea, unspecified - Discharge Dispostion Disposition: HOME Condition at time of disposition: Improved Decision to Admit order: No - Prescriptions Prescriptions: Ondansetron [Zofran -] 4 mg PO TID #15 tablet - Referrals Referrals: Gary Lan [Primary Care Provider] - - Patient Instructions Printed Discharge Instructions: DI for Nausea -- Adult, DI for Vomiting -- Adult Additional Instructions: You were seen in the emergency room today for vomiting and diarrhea. The blood tests were normal. It seems like you probably have a virus causing your symptoms. Keep yourself well hydrated, stick to a liquid diet for the next few days (water , tea, clear soup, gingerale). If you can tolerate that then you can move on to toast, bananas, rice, applesauce. Then you can start a regular diet. Do not drink alcohol, fried or fatty foods. Make sure to make an appointment with your doctor next week. come back to the emergency room if pain gets worse, you are unable to drink anything, you develop fever, you have blood in the stool or vomit or if any new concerning symptom develops. Thank you - Post Discharge Activity
[2019-02-01 04:51] LABS: BASO % 0.2 % (0-2.0); EOS % 0.8 % (0-4.5); HEMATOCRIT 42.7 % (32.4-45.2); HEMOGLOBIN 14.8 GM/dL (10.7-15.3); LYMPH % 8.5 % (8-40); MCHC 34.7 g/dl (32.0-36.0); MEAN CELL VOLUME 94.9 fl (80-96); MEAN PLT VOLUME 8.5 fl (7.5-11.1); MONO % 10.8 % (3.8-10.2); NEUT % 79.7 % (42.8-82.8); PLATELET COUNT 220 K/MM3 (134-434); RDW 13.6 % (11.6-15.6); WHITE BLOOD COUNT 13.8 K/mm3 (4.0-10.0)
[2019-02-01 05:27] LABS: ALBUMIN 3.8 g/dl (3.4-5.0); ALK PHOS 78 U/L (45-117); ANION GAP 8 MMOL/L (8-16); BILIRUBIN,TOTAL 0.4 mg/dL (0.2-1); BLOOD UREA NITROGEN 18 mg/dL (7-18); CALCIUM 8.6 mg/dL (8.5-10.1); CHLORIDE 104 mmol/L (98-107); CO2 25 mmol/L (21-32); CREATININE 0.7 mg/dL (0.55-1.3); GLUCOSE,RANDOM 116 mg/dL (74-106); POTASSIUM 3.8 mmol/L (3.5-5.1); SGOT/AST 31 U/L (15-37); SGPT/ALT 30 U/L (13-61); SODIUM 138 mmol/L (136-145); TOT PROT 7.9 g/dl (6.4-8.2)
== END 2019-02-01 06:15 | disposition home or self-care (01) ==
LOC: JER 03:33
PROC: 3E033GC Introduction of Other Therapeutic Substance into Peripheral Vein, Percutaneous Approach (ICD-10-PCS; principal; 2019-02-01)
PROC: 3E033GC Introduction of Other Therapeutic Substance into Peripheral Vein, Percutaneous Approach (ICD-10-PCS; 2019-02-01)
DX: R11.2 Nausea with vomiting, unspecified (principal); R19.7 Diarrhea, unspecified; E03.9 Hypothyroidism, unspecified; Z98.84 Bariatric surgery status
CPT/HCPCS: 36415; 80053; 83690; 85025; 87804; 96365; 96375; 99282-25; J7030

== ENCOUNTER 2019-12-02 15:59 | Emergency (ER) | payer OTHER ==
--- NOTE | 2019-12-02 16:19 | PDOC ---
Rapid Medical Evaluation Chief Complaint: Respiratory Time Seen by Provider: 12/02/19 16:17 Medical Evaluation: Allergies Allergy/AdvReac Type Severity Reaction Status Date / Time No Known Allergies Allergy Verified 02/01/19 04:19 12/02/19 16:18 Pt c/o: cough x 3 days, difficulty with deep breathing, no hx asthma, no smoking hx Pt on brief exam: lcta, vss Pt ordered for: none Pt to proceed to the ED Discharge Disposition - Diagnosis Cough, Viral URI with cough - Discharge Dispostion Disposition: HOME Condition at time of disposition: Stable - Referrals Referrals: Gary Lan [Primary Care Provider] - - Patient Instructions Printed Discharge Instructions: DI for Viral Upper Respiratory Infection -- Adult Additional Instructions: Return to the emergency room for worsening symptoms. Follow-up with your primary care physician in 2 to 3 days without fail Tylenol Motrin for any fevers as needed. - Post Discharge Activity Work/School Note: Back to Work
[2019-12-02 16:20] VITALS: BP 153/85; PULSE 83; TEMP 98.6; BMI 34.7
--- NOTE | 2019-12-02 16:50 | PDOC ---
History of Present Illness - General Chief Complaint: Respiratory Stated Complaint: ASTHMA Time Seen by Provider: 12/02/19 16:17 - History of Present Illness Initial Comments: 12/02/19 16:50 54-year-old female with a past medical history of hypothyroidism presents for flulike symptoms x3 days Past History - Past Medical History Allergies/Adverse Reactions: Allergies Allergy/AdvReac Type Severity Reaction Status Date / Time No Known Allergies Allergy Verified 12/02/19 16:17 Home Medications: Ambulatory Orders Levothyroxine [Synthroid -] 100 mcg PO DAILY 01/23/18 Albuterol Sulfate Inhaler - [Ventolin HFA Inhaler -] 1 - 2 inh PO Q4H #1 inhaler 10/30/18 predniSONE [Deltasone -] 20 mg PO BID #8 tablet 10/30/18 Ondansetron [Zofran -] 4 mg PO TID #15 tablet 02/01/19 CVA: No COPD: No CHF: No DVT: No Dementia: No Diabetes: No Thyroid Disease: Yes (HYPOTHYROIDISM) - Surgical History Gastric Stapling: No (GASTRIC SLEEVE) - Immunization History Immunization Up to Date: Yes - Psycho Social/Smoking Cessation Hx Smoking Status: No Smoking History: Never smoked Have you smoked in the past 12 months: No Number of Cigarettes Smoked Daily: 0 Hx Alcohol Use: No Drug/Substance Use Hx: No Substance Use Type: None Review of Systems - Review of Systems Constitutional: Yes: Chills, Malaise, Night Sweats. No: Fever HEENTM: Yes: Nose Congestion Respiratory: Yes: Cough *Physical Exam - Vital Signs Last Vital Signs Temp Pulse Resp BP Pulse Ox 98.6 F 83 16 153/85 100 12/02/19 16:17 12/02/19 16:17 12/02/19 16:17 12/02/19 16:17 12/02/19 16:17 - Physical Exam 12/02/19 16:50 GENERAL: The patient is awake, alert, and fully oriented, in no acute distress. HEAD: Normal with no signs of trauma. EYES: sclera anicteric, conjunctiva clear. ENT: Ears normal tympanic membranes normal oropharynx clear uvula midline NECK: Normal range of motion LUNGS: Breath sounds equal, clear to auscultation bilaterally. No wheezes, and no crackles. HEART: S1 and S2 without murmur, rub or gallop. ABDOMEN: Soft, nontender, normoactive bowel sounds. No guarding, no rebound. No masses. EXTREMITIES: Normal range of motion, no edema. No clubbing or cyanosis. No cords, erythema, or tenderness. NEUROLOGICAL: Cranial nerves II through XII grossly intact. Normal speech, normal gait. PSYCH: Normal mood, normal affect. SKIN: Warm, Dry, normal turgor, no rashes or lesions noted. General Appearance: Yes: Appropriately Dressed Medical Decision Making - Medical Decision Making 12/02/19 17:30 Supportive care for viral upper respiratory infection follow-up with PCP Discharge - Discharge Information Problems reviewed: Yes Clinical Impression/Diagnosis: Cough, Viral URI with cough Condition: Stable Disposition: HOME - Admission No - Follow up/Referral Referrals: Gary Lan [Primary Care Provider] - - Patient Discharge Instructions Patient Printed Discharge Instructions: DI for Viral Upper Respiratory Infection -- Adult Additional Instructions: Return to the emergency room for worsening symptoms. Follow-up with your primary care physician in 2 to 3 days without fail Tylenol Motrin for any fevers as needed. - Post Discharge Activity Work/Back to School Note: Back to Work
== END 2019-12-02 17:36 | disposition home or self-care (01) ==
LOC: JERFT 15:59
DX: J06.9 Acute upper respiratory infection, unspecified (principal); B97.89 Other viral agents as the cause of diseases classified elsewhere; E03.9 Hypothyroidism, unspecified; Z98.84 Bariatric surgery status
CPT/HCPCS: 87804; 99281-25

== ENCOUNTER 2022-11-14 14:53 | Emergency (ER) | payer OTHER ==
[2022-11-14 15:17] VITALS: BP 138/90; PULSE 83; RESP 20; TEMP 98.1; BMI 32.5
[2022-11-14] MEDS ORDERED: LIDOCAINE 5% TOPICAL PATCH TP ONE (17:39)
[2022-11-14] MEDS ORDERED: diazePAM 5 MG TABLET PO ONE (17:40)
[2022-11-14] MEDS ORDERED: KETOROLAC TROMETHAMINE 30 MG/1 ML VIAL IM ONE (17:40)
[2022-11-14] MEDS ORDERED: LIDOCAINE 5% TOPICAL PATCH ONE (17:45)
[2022-11-14] MEDS ORDERED: diazePAM 5 MG TABLET ONE (17:46)
[2022-11-14] MEDS ORDERED: KETOROLAC TROMETHAMINE 30 MG/1 ML VIAL ONE (17:46)
[2022-11-14 18:37] LABS: EPI CELLS 7 /uL (0-25.1); HYALINE CASTS 1 /uL (0-3.1); PH,URINE 6.5 (5.0-8.0); URINE APPEARANCE CLEAR; URINE BACTERIA 11 /uL (0-1359); URINE BILIRUBIN NEGATIVE (NEGATIVE); URINE COLOR YELLOW; URINE GLUCOSE (UA) NEGATIVE (NEGATIVE); URINE KETONE TRACE (NEGATIVE); URINE LEUK ESTERASE TRACE (NEGATIVE); URINE NITRITE NEGATIVE (NEGATIVE); URINE PROTEIN TRACE (NEGATIVE); URINE RBC 20 /uL (0-23.9); URINE WBC 30 /uL (0-25.8)
[2022-11-14] MEDS ORDERED: ACETAMINOPHEN 500 MG TABLET (FP) PO ONE (19:03)
[2022-11-14] MEDS ORDERED: ACETAMINOPHEN 500 MG TABLET (FP) ONE (19:06)
[2022-11-15] MEDS ORDERED: LIDOCAINE PATCH REMOVAL MC SCH (06:00)
== END 2022-11-14 19:14 | disposition home or self-care (01) ==
LOC: JERFT 14:53
PROC: 3E023GC Introduction of Other Therapeutic Substance into Muscle, Percutaneous Approach (ICD-10-PCS; principal; 2022-11-14)
DX: M54.42 Lumbago with sciatica, left side (principal)
CPT/HCPCS: 72100-TC-FY; 81003; 99284-25

== ENCOUNTER 2024-05-28 22:39 | Emergency (ER) | payer OTHER ==
[2024-05-28 22:45] VITALS: BMI 32.8
[2024-05-28] MEDS ORDERED: ceFAZolin SODIUM 1 GM VIAL ONE (23:16)
[2024-05-28] MEDS ORDERED: DIPHTH,PERTUSS(ACELL),TET 0.5 ML DISP.SYRIN IM ONE (23:16)
[2024-05-28] MEDS ORDERED: FENTANYL CITRATE/PF 50 MCG/ML VIAL ONE (23:16)
[2024-05-28 23:17] LABS: BASO % 0.9 % (0-2.0); EOS % 2.9 % (0-4.5); HEMATOCRIT 43.5 % (32.4-45.2); HEMOGLOBIN 15.2 GM/dL (10.7-15.3); LYMPH % 46.6 % (8-40); MCHC 34.9 g/dl (32.0-36.0); MEAN CELL VOLUME 94.5 fl (80-96); MEAN PLT VOLUME 8.5 fl (7.5-11.1); MONO % 8.8 % (3.8-10.2); NEUT % 40.8 % (42.8-82.8); PLATELET COUNT 283 10^3/uL (134-434); RDW 13.8 % (11.6-15.6); WHITE BLOOD COUNT 10.6 K/mm3 (4.0-10.0)
[2024-05-28] MEDS: CEFAZOLIN 1 GM in DEXTROSE 5%-WATER - 50 ML IVPB ONE (23:21)
[2024-05-28] MEDS: DIPHTH,PERTUSS(ACELL),TET 0.5 ML DISP.SYRIN IM ONE (23:22)
[2024-05-28 23:52] LABS: POTASSIUM 4.3 mmol/L (3.5-5.1)
[2024-05-28 23:54] LABS: CALCIUM 9.2 mg/dL (8.5-10.1)
[2024-05-28 23:55] LABS: BLOOD UREA NITROGEN 14.1 mg/dL (7-18)
[2024-05-28 23:58] LABS: CREATININE 0.9 mg/dL (0.55-1.3)
[2024-05-28 23:59] LABS: BILIRUBIN,TOTAL 0.3 mg/dL (0.2-1)
[2024-05-29] LABS: TOT PROT 8.2 g/dl (6.4-8.2)
[2024-05-29] MEDS ORDERED: FENTANYL CITRATE/PF 50 MCG/ML VIAL ONE ×2 (00:06→01:56)
[2024-05-29 00:20] VITALS: BP 125/80; PULSE 108; RESP 22
== END 2024-05-29 02:56 | disposition short-term general hospital (02) ==
LOC: JER 22:39
PROC: 3E03329 Introduction of Other Anti-infective into Peripheral Vein, Percutaneous Approach (ICD-10-PCS; principal; 2024-05-28)
PROC: 3E033NZ Introduction of Analgesics, Hypnotics, Sedatives into Peripheral Vein, Percutaneous Approach (ICD-10-PCS; 2024-05-28)
PROC: 3E033NZ Introduction of Analgesics, Hypnotics, Sedatives into Peripheral Vein, Percutaneous Approach (ICD-10-PCS; 2024-05-28)
PROC: 3E033NZ Introduction of Analgesics, Hypnotics, Sedatives into Peripheral Vein, Percutaneous Approach (ICD-10-PCS; 2024-05-28)
PROC: 3E0234Z Introduction of Serum, Toxoid and Vaccine into Muscle, Percutaneous Approach (ICD-10-PCS; 2024-05-28)
DX: S61.412A Laceration without foreign body of left hand, initial encounter (principal); W26.0XXA Contact with knife, initial encounter; Z20.822 Contact with and (suspected) exposure to COVID-19; Z23 Encounter for immunization
CPT/HCPCS: 0241U-QW; 36415; 80053; 85025; 86850; 86900; 86901; 90471; 90715; 96365; 96375; 96376; 99285-25